=== PATIENT | male | born 1970 | race Two or more races ===

== ENCOUNTER → 2021-06-14 | Day surgery (SDC) | payer OTHER ==
[~2021-06-14] VITALS: Ht 167.6 cm; Wt 106.6 kg
[~2021-06-14] MED LIST: BUPIVACAINE 0.5% MPF INJ 30ML SDV IJ ONE; HEPARIN SODIUM (PORCINE) 5000 UNITS/ML 1ML VIAL ONE; HYDROmorphone HCL 2 MG/ML VL IV PRN; LIDOCAINE 2% (LOCAL ANESTH.) PF 5ml SDV ONE; MIDAZOLAM HCL 2MG/2ML 2ml VIAL (1mg/ml) ONE; ONDANSETRON HCL 4 MG/2 ML VIAL IV PRN; ONDANSETRON HCL 4 MG/2 ML VIAL ONE; PROPOFOL 10 MG/ML 20 ML IV ONE; ROCURONIUM 10MG/ML 10ML VIAL IV ONE; SUCCINYLCHOLINE CHLORIDE 20 MG/ML 10ML VIAL IV ONE; ceFAZolin 1GM/50ML 100 ML IV ONE; fentaNYL CITRATE 5 ML ONE
[2021-06-14 13:30] VITALS: BP 148/97
== END | disposition home or self-care (01) ==
LOC: SUR 08:29
DX: K40.90 Unilateral inguinal hernia, without obstruction or gangrene, not specified as recurrent (principal); D17.6 Benign lipomatous neoplasm of spermatic cord
CPT/HCPCS: 49505; 55520; C1781; J0330; J0690; J1644; J2001; J2250; J2405; J2704; J3010; J3490